=== PATIENT | male | born 2005 | race Hispanic/Latino ===

== ENCOUNTER 2023-08-13 13:20 | Emergency (ER) | payer OTHER ==
[~2023-08-13] VITALS: Ht 170.2 cm; Wt 81.6 kg
[2023-08-13 14:36] LABS: HEMATOCRIT 44.9 % (42-54); MEAN CORPUSCULAR HEMOGLOBIN 28.8 pg (27.0-33.0); MEAN CORPUSCULAR HGB CONC 33.6 g/dL (32.0-36.0); MEAN CORPUSCULAR VOLUME 85.7 fL (80-100); RED BLOOD CELL COUNT(AUTO) 5.24 MIL/uL (4.50-6.20); WHITE BLOOD COUNT (AUTO) 12.7 K/uL (4.8-10.8)
[2023-08-13 14:47] LABS: CREATININE 1.1 mg/dL (0.5-1.5); POTASSIUM 4.1 mmol/L (3.5-5.1)
[2023-08-13 14:51] LABS: ALBUMIN 4.3 g/dL (3.5-5.0); BILIRUBIN,TOTAL 0.6 mg/dL (0.2-1.0); TOTAL PROTEIN, SERUM 9.2 g/dL (6.0-8.3)
[2023-08-13 15:00] LABS: APPEARANCE,URINE CLEAR (CLEAR); BILIRUBIN,URINE NEGATIVE (NEGATIVE); COLOR,URINE YELLOW (YELLOW); GLUCOSE, URINE (UA) NEGATIVE (NEGATIVE); KETONES,URINE NEGATIVE (NEGATIVE); LEUKOCYTE ESTERASE ,URINE NEGATIVE Leu/uL (NEGATIVE); NITRATE,URINE NEGATIVE (NEGATIVE); OCCULT BLOOD,URINE MODERATE (NEGATIVE); PROTEIN,URINE 20 mg/dL (NEGATIVE); UROBILINOGEN,URINE 0.2 mg/dL (0.2-1.0)
[2023-08-13] MEDS ORDERED: LACTATED RINGERS 1000ML 1,000 ML IV ONE (15:00)
[2023-08-13 15:01] LABS: AMPHET/METH SCREEN,URINE NEGATIVE (NEGATIVE); BARBITURATE SCREEN, URINE NEGATIVE (NEGATIVE); BENZODIAZEPINES SCREEN,URINE NEGATIVE (NEGATIVE); CANNABINOID SCREEN,URINE POSITIVE (NEGATIVE); COCAINE SCREEN,URINE NEGATIVE (NEGATIVE); OPIATE SCREEN,URINE NEGATIVE (NEGATIVE); PHENCYCLIDINE SCREEN,URINE NEGATIVE (NEGATIVE)
[2023-08-13 15:04] LABS: ADD UA MICROSCOPIC YES
[2023-08-13 15:16] LABS: BACTERIA,URINE RARE /HPF (None Seen); MUCUS,URINE FEW LPF (None Seen); SQUAMOUS EPITHELIAL CELL,UR FEW /HPF (0-2); WBC,URINE 0-1 /HPF (0-1)
[2023-08-13 15:52] LABS: RAPID GROUP A STREP negative (NEGATIVE)
[2023-08-13 15:57] LABS: SARS-CoV-2, RNA, NAAT NEGATIVE SARS CoV-2 (NEGATIVE)
[2023-08-13 16:01] LABS: INFLUENZA TYPE B Negative For Type B (NEGATIVE)
[2023-08-13 16:21] LABS: INFLUENZA TYPE A Positive For Type A (NEGATIVE)
[2023-08-13] MEDS ORDERED: ONDA4TAB10 PO (17:20)
[2023-08-13 17:27] VITALS: BP 124/75; PULSE 82; RESP 18; O2SAT 98
[2023-08-13] MEDS ORDERED: BENZ-39 PO (17:38)
== END 2023-08-13 17:43 | disposition home or self-care (01) ==
LOC: EDH 13:20
DX: R55 Syncope and collapse (principal); J10.1 Influenza due to other identified influenza virus with other respiratory manifestations; R11.2 Nausea with vomiting, unspecified; E86.9 Volume depletion, unspecified; J45.909 Unspecified asthma, uncomplicated
CPT/HCPCS: 99285; 96360; 70450; 71045; 87635; 80053; 80305; 85027; 85378; 87880; 87804 ×2; 36415; 93005; 81001; C9803; J7120